=== PATIENT | male | born 1990 | race African-American/Black ===

== ENCOUNTER 2021-04-07 08:56 | Emergency (ER) | payer MEDICAID, OTHER ==
[~2021-04-07] VITALS: Ht 167.6 cm; Wt 73.0 kg
[2021-04-07] MEDS ORDERED: IBUPROFEN 400MG TABLET PO ONE (10:00)
[2021-04-07 10:04] VITALS: BP 129/74
[2021-04-07] MEDS ORDERED: IBUP-2028 MT (10:37)
== END 2021-04-07 10:50 | disposition home or self-care (01) ==
LOC: ER 08:56
DX: M79.641 Pain in right hand (principal); M54.2 Cervicalgia; M25.511 Pain in right shoulder; V49.9XXA Car occupant (driver) (passenger) injured in unspecified traffic accident, initial encounter; Y93.89 Activity, other specified; Y92.410 Unspecified street and highway as the place of occurrence of the external cause
CPT/HCPCS: 73130; 99283